=== PATIENT | male | born 1960 | race Hispanic/Latino ===

== ENCOUNTER 2021-01-24 11:48 | Emergency (ER) | payer OTHER ==
[~2021-01-24] VITALS: Ht 188 cm; Wt 127.0 kg
[2021-01-24 11:49] VITALS: BP 131/68
[2021-01-24 12:40] LABS: BASOPHILS % (AUTO) 1.5 % (0.0-5.0); EOSINOPHILS % (AUTO) 1.6 % (0.0-8.0); HEMATOCRIT 44.6 % (42-54); LYMPHOCYTES % (AUTO) 24.8 % (21.0-51.0); MEAN CORPUSCULAR HEMOGLOBIN 28.5 pg (27.0-33.0); MEAN CORPUSCULAR HGB CONC 32.1 g/dL (32.0-36.0); MEAN CORPUSCULAR VOLUME 88.8 fL (79-99); MONOCYTES % (AUTO) 10.1 % (3.0-13.0); NEUTROPHILS % (AUTO) 61.6 % (40.0-77.0); PLATELET COUNT (AUTO) 217 K/uL (130-400); RED BLOOD CELL COUNT(AUTO) 5.02 MIL/uL (4.50-6.20); WHITE BLOOD COUNT (AUTO) 8.2 K/uL (4.8-10.8)
[2021-01-24 12:50] LABS: CREATININE 0.9 mg/dL (0.5-1.5); POTASSIUM 4.4 mmol/L (3.5-5.1)
[2021-01-24 12:54] LABS: ALBUMIN 3.6 g/dL (3.5-5.0); BILIRUBIN,TOTAL 0.5 mg/dL (0.2-1.0); TOTAL PROTEIN, SERUM 7.4 g/dL (6.0-8.3)
[2021-01-24 13:03] LABS: APPEARANCE,URINE Clear (CLEAR); BILIRUBIN,URINE Negative (NEGATIVE); COLOR,URINE Dark Yellow (YELLOW); GLUCOSE, URINE (UA) Negative (NEGATIVE); KETONES,URINE Negative (NEGATIVE); LEUKOCYTE ESTERASE ,URINE Negative (NEGATIVE); NITRATE,URINE Negative (NEGATIVE); OCCULT BLOOD,URINE Small (NEGATIVE); PH,URINE 5.5 (5.0-8.0); PROTEIN,URINE Trace mg/dL (NEGATIVE)
[2021-01-24 13:45] LABS: WBC,URINE None Seen /HPF (0-1)
[2021-01-24] MEDS ORDERED: DICYCLOMINE 20MG (10MG/ML) AMP IM SCH (13:45)
[2021-01-24] MEDS ORDERED: LEVOFLOXACIN 500 MG TABLET PO SCH (13:45)
[2021-01-24] MEDS ORDERED: FAMOTIDINE 20MG VIAL IV ONE ×2 (13:45→14:58)
[2021-01-24 13:46] LABS: BACTERIA,URINE None Seen /HPF (None Seen); MUCUS,URINE Moderate LPF (None Seen); SQUAMOUS EPITHELIAL CELL,UR Few /HPF (0-2)
[2021-01-24] MEDS ORDERED: METRONIDAZOLE 500MG/100ML BAG 100 ML IVPB SCH (14:00)
[2021-01-24] MEDS ORDERED: LIDOCAINE HCL 2% VISCOUS 15 ML UDCUP ONE (14:14)
[2021-01-24] MEDS ORDERED: MAGNESIUM HYDROXIDE 30 ML/UDCUP ONE (14:14)
[2021-01-24] MEDS ORDERED: CIPR-278 PO (16:16)
[2021-01-24] MEDS ORDERED: METR500T PO (16:16)
[2021-01-24] MEDS ORDERED: DICY20TA2 PO (16:16)
[2021-01-24 16:36] VITALS: BP 124/76
== END 2021-01-24 16:37 | disposition home or self-care (01) ==
LOC: EDH 11:48
DX: K52.9 Noninfective gastroenteritis and colitis, unspecified (principal); Z90.49 Acquired absence of other specified parts of digestive tract
CPT/HCPCS: 36415; 71045; 74176; 80053; 81001; 82150; 82550; 83690 ×2; 84484 ×2; 85025; 87040 ×2; 93005 ×2; 96365; 96372; 96375; 99285; J0500; J3490 ×2

== ENCOUNTER 2021-08-08 08:09 | Emergency (ER) | payer OTHER ==
[~2021-08-08] VITALS: Ht 188 cm; Wt 124.7 kg
[~2021-08-08 08:09] MED LIST: CIPR-278 PO; DICY20TA2 PO; METR500T PO
[2021-08-08 08:34] LABS: BASOPHILS % (AUTO) 2.1 % (0.0-5.0); HEMATOCRIT 41.2 % (42-54); LYMPHOCYTES % (AUTO) 22.9 % (21.0-51.0); MEAN CORPUSCULAR HEMOGLOBIN 28.8 pg (27.0-33.0); MEAN CORPUSCULAR HGB CONC 32.8 g/dL (32.0-36.0); MONOCYTES % (AUTO) 9.6 % (3.0-13.0); NEUTROPHILS % (AUTO) 63.8 % (40.0-77.0); PLATELET COUNT (AUTO) 201 K/uL (130-400); RED BLOOD CELL COUNT(AUTO) 4.68 MIL/uL (4.50-6.20); RED CELL DISTRIBUTION WIDTH 13.1 % (11.0-15.5)
[2021-08-08 08:51] LABS: ALBUMIN 3.7 g/dL (3.5-5.0); BILIRUBIN,TOTAL 0.4 mg/dL (0.2-1.0); CREATININE 0.9 mg/dL (0.5-1.5); POTASSIUM 4.1 mmol/L (3.5-5.1)
[2021-08-08 09:02] LABS: B-TYPE NATRIURETIC PEPTIDE 28 pg/mL (0-100)
[2021-08-08] MEDS ORDERED: ASPIRIN 325MG TAB PO ONE (12:30)
[2021-08-08] MEDS ORDERED: NITROGLYCERIN 0.4 MG SL TAB SL PRN (12:30)
[2021-08-08] MEDS ORDERED: NAPR-1180 PO (13:09)
[2021-08-08 13:49] VITALS: BP 135/84
== END 2021-08-08 13:53 | disposition home or self-care (01) ==
LOC: EDH 08:09
DX: R07.89 Other chest pain (principal); Z20.822 Contact with and (suspected) exposure to COVID-19; E66.9 Obesity, unspecified; Z68.35 Body mass index [BMI] 35.0-35.9, adult; Z90.49 Acquired absence of other specified parts of digestive tract
CPT/HCPCS: 36415; 71045; 80053; 82550; 83880; 84484 ×2; 85025; 87635; 87804 ×2; 93005; 99285; C9803

== ENCOUNTER 2023-04-15 14:29 | Emergency (ER) | payer OTHER ==
[~2023-04-15] VITALS: Ht 190.5 cm; Wt 117.9 kg
[~2023-04-15 14:29] MED LIST changes: +NAPR-1180 PO
[2023-04-15] MEDS ORDERED: KETOROLAC 60 MG VIAL (30MG/ML) IM ONE (15:30)
[2023-04-15] MEDS ORDERED: DEXAMETHASONE SOD PHOSPHATE 4 MG/ML 1ML VIAL IM ONE (15:30)
[2023-04-15] MEDS ORDERED: MORPHINE 4 MG SYG IM ONE (16:30)
[2023-04-15] MEDS ORDERED: IBUP-2070 PO (17:06)
[2023-04-15] MEDS ORDERED: ACET-2079 PO (17:06)
[2023-04-15 17:13] VITALS: BP 136/78; PULSE 84; RESP 18; O2SAT 98
== END 2023-04-15 17:22 | disposition home or self-care (01) ==
LOC: EDH 14:29
DX: M25.561 Pain in right knee (principal); Z90.49 Acquired absence of other specified parts of digestive tract
CPT/HCPCS: 99285; 73700; 73562; 96372 ×3; J1100; J2270; J1885

== ENCOUNTER → 2023-05-01 | Outpatient (CLI) | payer OTHER ==
[~2023-05-01] MED LIST changes: +ACET-2079 PO; +IBUP-2070 PO; +ONDA-104 PO; +TRAZ-187 PO
== END | disposition home or self-care (01) ==
LOC: RAH 12:33
PROVIDERS: ATTEND Internal Medicine
DX: M17.11 Unilateral primary osteoarthritis, right knee (principal); M26.52 Limited mandibular range of motion; M25.561 Pain in right knee
CPT/HCPCS: 73721

== ENCOUNTER → 2023-07-06 | Outpatient (CLI) | payer OTHER ==
[~2023-07-06] MED LIST changes: -ACET-2079 PO; -CIPR-278 PO; -DICY20TA2 PO; -IBUP-2070 PO; -METR500T PO; -NAPR-1180 PO
== END | disposition home or self-care (01) ==
LOC: RAH 08:28
PROVIDERS: ATTEND Internal Medicine Gastroenterology
DX: K21.9 Gastro-esophageal reflux disease without esophagitis (principal); Q39.6 Congenital diverticulum of esophagus; R93.3 Abnormal findings on diagnostic imaging of other parts of digestive tract; R11.2 Nausea with vomiting, unspecified
CPT/HCPCS: 74240

== ENCOUNTER → 2023-08-08 | Outpatient (CLI) | payer OTHER | END | disposition home or self-care (01) | LOC: RAH 07:06 | PROVIDERS: ATTEND Internal Medicine Gastroenterology | DX: R93.3 Abnormal findings on diagnostic imaging of other parts of digestive tract (principal) | CPT/HCPCS: 78264; A9541 ==

== ENCOUNTER 2023-09-06 14:47 | Observation (INO) | payer OTHER ==
[~2023-09-06] VITALS: Ht 190.5 cm; Wt 111.1 kg
[2023-09-06 15:40] LABS: HEMATOCRIT 43.3 % (42-54); MEAN CORPUSCULAR HEMOGLOBIN 29.1 pg (27.0-33.0); PLATELET COUNT (AUTO) 259 K/uL (130-400); RED BLOOD CELL COUNT(AUTO) 4.92 MIL/uL (4.50-6.20); RED CELL DISTRIBUTION WIDTH 12.6 % (11.0-15.5); WHITE BLOOD COUNT (AUTO) 8.7 K/uL (4.8-10.8)
[2023-09-06 15:56] LABS: BASOPHILS # (AUTO) 0.14 K/uL (0.00-0.20); BASOPHILS % (AUTO) 1.6 % (0.0-5.0); EOSINOPHILS # (AUTO) 0.07 K/uL (0.00-0.70); EOSINOPHILS % (AUTO) 0.8 % (0.0-8.0); IMMATURE GRANULOCYTE ABSOLUTE 0.02 K/uL (0-1); LYMPHOCYTES # (AUTO) 2.5 K/uL (1.0-4.8); LYMPHOCYTES % (AUTO) 28.8 % (21.0-51.0); MONOCYTES # (AUTO) 0.8 K/uL (0.1-1.0); MONOCYTES % (AUTO) 8.6 % (3.0-13.0); NEUTROPHILS # (AUTO) 5.3 K/uL (1.8-7.7)
[2023-09-06 16:15] LABS: CREATININE 1.1 mg/dL (0.5-1.5); POTASSIUM 3.9 mmol/L (3.5-5.1)
[2023-09-06 16:23] LABS: ALBUMIN 4.1 g/dL (3.5-5.0); BILIRUBIN,TOTAL 0.7 mg/dL (0.2-1.0); TOTAL PROTEIN, SERUM 7.6 g/dL (6.0-8.3)
[2023-09-06 16:43] LABS: APPEARANCE,URINE CLEAR (CLEAR); BILIRUBIN,URINE NEGATIVE (NEGATIVE); COLOR,URINE COLORLESS (YELLOW); GLUCOSE, URINE (UA) NEGATIVE (NEGATIVE); KETONES,URINE NEGATIVE (NEGATIVE); LEUKOCYTE ESTERASE ,URINE NEGATIVE Leu/uL (NEGATIVE); NITRATE,URINE NEGATIVE (NEGATIVE); OCCULT BLOOD,URINE NEGATIVE (NEGATIVE); PROTEIN,URINE NEGATIVE (NEGATIVE); UROBILINOGEN,URINE 0.2 mg/dL (0.2-1.0)
[2023-09-06 16:46] LABS: ADD UA MICROSCOPIC NO
[2023-09-06] MEDS: KETOROLAC 30MG VIAL (30MG/ML) IVP ONE (17:51)
[2023-09-06] MEDS ORDERED: ONDANSETRON ODT 4MG TAB SL PRN (20:30)
[2023-09-06] MEDS ORDERED: ACETAMINOPHEN 325 MG TAB PO PRN (20:30)
[2023-09-06] MEDS: ATORVASTATIN 40 MG TABLET PO SCH (21:21)
[2023-09-07 07:33] LABS: BASOPHILS # (AUTO) 0.12 K/uL (0.00-0.20); BASOPHILS % (AUTO) 1.7 % (0.0-5.0); EOSINOPHILS # (AUTO) 0.11 K/uL (0.00-0.70); EOSINOPHILS % (AUTO) 1.6 % (0.0-8.0); HEMATOCRIT 39.6 % (42-54); IMMATURE GRANULOCYTE ABSOLUTE 0.02 K/uL (0-1); LYMPHOCYTES # (AUTO) 1.7 K/uL (1.0-4.8); LYMPHOCYTES % (AUTO) 24.6 % (21.0-51.0); MEAN CORPUSCULAR HEMOGLOBIN 29.3 pg (27.0-33.0); MEAN CORPUSCULAR HGB CONC 33.3 g/dL (32.0-36.0); MONOCYTES # (AUTO) 0.7 K/uL (0.1-1.0); NEUTROPHILS # (AUTO) 4.3 K/uL (1.8-7.7); NEUTROPHILS % (AUTO) 61.8 % (40.0-77.0); PLATELET COUNT (AUTO) 213 K/uL (130-400); RED CELL DISTRIBUTION WIDTH 12.6 % (11.0-15.5)
[2023-09-07] MEDS ORDERED: METO5 PO (07:37)
[2023-09-07] MEDS ORDERED: PANT40GR PO (07:37)
[2023-09-07] MEDS: PANTOPRAZOLE 40 MG TAB DR PO SCH (07:59)
[2023-09-07] MEDS: 0.9%NACL 1000ML 1,000 ML IV SCH (07:59)
[2023-09-07] MEDS: ASPIRIN 325MG TAB PO SCH (08:00)
[2023-09-07] MEDS ORDERED: MAG/ALUM/SIMETH 30 ML UDCUP PO PRN (08:00)
[2023-09-07] MEDS ORDERED: LACTULOSE 20 GM/30 ML UDCUP PO PRN (08:00)
[2023-09-07 08:07] LABS: CREATININE 1.1 mg/dL (0.5-1.5); POTASSIUM 4.3 mmol/L (3.5-5.1)
[2023-09-07] MEDS ORDERED: NON-FORMULARY MEDICATION 1 EACH (Pantoprazole Sodium 40 MG) PO SCH (09:00)
[2023-09-07] MEDS: METOCLOPRAMIDE 5 MG TABLET PO SCH (12:07)
[2023-09-07] MEDS ORDERED: ROSU5TAB12 PO (12:46)
[2023-09-07] MEDS ORDERED: TRAZ150T79 PO (12:46)
[2023-09-07 13:43] VITALS: BP 116/83; PULSE 62; RESP 18; O2SAT 98
[2023-09-07] MEDS ORDERED: TRAZODONE HCL 100 MG TABLET PO SCH (21:00)
== END 2023-09-07 14:09 | disposition home or self-care (01) ==
LOC: EDH 14:47 → EDHIP 19:30
PROVIDERS: ADMIT Internal Medicine; ATTEND Internal Medicine
DX: R07.89 Other chest pain (principal); K21.9 Gastro-esophageal reflux disease without esophagitis; K31.84 Gastroparesis; R10.12 Left upper quadrant pain; G47.33 Obstructive sleep apnea (adult) (pediatric); E78.2 Mixed hyperlipidemia; E88.810 Metabolic syndrome; E66.9 Obesity, unspecified; M17.0 Bilateral primary osteoarthritis of knee; G89.29 Other chronic pain; J30.9 Allergic rhinitis, unspecified; R20.0 Anesthesia of skin; M79.622 Pain in left upper arm; Z68.30 Body mass index [BMI] 30.0-30.9, adult; Z90.49 Acquired absence of other specified parts of digestive tract; Z79.899 Other long term (current) drug therapy
CPT/HCPCS: 96374; 99285; 84484 ×2; 80053; 85025 ×2; 81003; 36415 ×2; 71045; 70450; 93005; 96361 ×2; 80048; 93880; J1885; G0378 ×6; J7030

== ENCOUNTER → 2024-09-09 | Outpatient (CLI) | payer OTHER ==
[~2024-09-09] MED LIST changes: +METO5 PO; +PANT40GR PO; +ROSU5TAB51 PO; +TRAZ150T79 PO
--- NOTE | 2024-09-09 12:48 | HMCIMG ---
CALCANEUS 2+VWS LT REASON: PAIN ON LEFT HEEL, PAIN IN LEFT FOOT. COMPARISON: None TECHNIQUE: 2 images of left calcaneus were obtained. FINDINGS: There is a small calcaneal spur displaced fracture is seen. IMPRESSION: Findings as described above.
== END | disposition home or self-care (01) ==
LOC: RAH 10:18
PROVIDERS: ATTEND Internal Medicine
DX: S92.002A Unspecified fracture of left calcaneus, initial encounter for closed fracture (principal); M77.32 Calcaneal spur, left foot; M79.672 Pain in left foot; X58.XXXA Exposure to other specified factors, initial encounter; Y93.89 Activity, other specified; Y92.89 Other specified places as the place of occurrence of the external cause; Y99.8 Other external cause status
CPT/HCPCS: 73650

== ENCOUNTER 2024-11-23 18:44 | Emergency (ER) | payer OTHER ==
[~2024-11-23] VITALS: Ht 188 cm; Wt 122.5 kg
--- NOTE | 2024-11-23 18:59 | ERN ---
ED Note History of Present Illness Stated Complaint: LEFT HEEL PAIN Chief Complaint: FOOT INJURY/PAIN Time Seen by MD: 18:47 Dictation: PATIENT IS A 64-YEAR-OLD MALE HERE WITH COMPLAINTS OF LEFT HEEL PAIN WORSE IN THE 1ST STEPS IN THE MORNING FOR THE LAST SEVERAL MONTHS. HE STATES HE HAD BEEN SEEN IN HIS PRIMARY CARE DOCTOR FOR SEVERAL MONTHS WHO GAVE HIM A SHOT FOR PAIN, SENT HIM FOR AN X-RAY, THEN SENT HIM FOR AN MRI AND HE WAS TOLD HE HAD A HEEL SPUR,. SAID HE HAS THEN WAS IN A WALKING BOOT AND THEN A SCOOTER WAS NEVER REFERRED TO AN ORTHOPEDIC SURGEON. HE SAID HE HAS A LOCAL [employer] AND HAS TO WALK QUITE A BIT AND NEEDS RELIEF. HE HAS ANY HISTORY OF GOUT NO FEVER NO CHILLS NO HEEL ERYTHEMA. Allergies: Coded Allergies: No Known Drug Allergies (Unverified Allergy, Unknown, 05/16/23) Home Meds Active Scripts Rosuvastatin Calcium (Rosuvastatin Calcium) 5 Mg Tablet, 5 MG PO HS, #90 TAB 1 Refill Prov:NORA BELL MD 09/07/23 Trazodone HCl (Trazodone HCl) 150 Mg Tablet, 150 MG PO HS, #90 TAB 1 Refill Prov:NORA BELL MD 09/07/23 Pantoprazole Sodium (Pantoprazole Sodium) 40 Mg Granpkt.dr, 40 MG PO DAILY, #30 10 Prov:NORA BELL MD 09/07/23 Metoclopramide HCl (Reglan) 5 Mg Tab, 5 MG PO TIDAC, #30 TAB 1 Refill Prov:NORA BELL MD 09/07/23 Ondansetron HCl (Ondansetron HCl) 4 Mg Tablet, 4 MG PO TID, #12 TAB 1 Refill Prov:NORA BELL MD 05/17/23 Trazodone HCl (Trazodone HCl) 100 Mg Tablet, 100 MG PO HS, #90 TAB 1 Refill Prov:NORA BELL MD 05/17/23 Past Medical History Past Medical History: Other Additional Past Medical Hx: GRANULOMA Surgical History: Appendectomy, Tonsillectomy, Cholecystectomy Surgical History Other: LT INGUINAL HERNIA REPAIR Family History: Negative Social History: Negative RN Note Reviewed/Agreed w/PFSH: Yes Review of System Dictation CONSTITUTIONAL: NEGATIVE EXCEPT FOR HPI HEAD/FACE: NEGATIVE EXCEPT FOR HPI EENT: NEGATIVE EXCEPT FOR HPI RESPIRATORY: NEGATIVE EXCEPT FOR HPI GASTROINTESTINAL/ABDOMINAL: NEGATIVE EXCEPT FOR HPI GENITOURINARY: NEGATIVE EXCEPT FOR HPI MUSCULOSKELETAL: NEGATIVE EXCEPT FOR HPI CHRONIC LEFT HEEL PAIN SEVERAL MONTHS. INTEGUMENTARY: NEGATIVE EXCEPT FOR HPI NEUROLOGICAL/PSYCH: NEGATIVE EXCEPT FOR HPI HEMATOLOGIC/LYMPHATIC: NEGATIVE EXCEPT FOR HPI ALL SYSTEMS NEGATIVE, EXCEPT NOTED ABOVE. 13 POINT REVIEW OF SYSTEMS ASSESSED AND ALL NEGATIVE EXCEPT FOR ABOVE. Initial Vital Sign VS Vital Signs Date Time Temp Pulse Resp B/P (MAP) Pulse Ox O2 Delivery O2 Flow Rate FiO2 11/23/24 18:48 97.9 98 18 126/75 97 Room Air 0 11/23/24 19:04 21 Physical Exam Dictation VITAL SIGNS REVIEWED GENERAL APPEARANCE: ALERT, ORIENTED X 3, MODERATE ACUTE DISTRESS, WELL DEVELOPED, NOURISHED. HEAD AND FACE: NON-TRAUMATIC. EYES: PERRL, PINK CONJUNCTIVAS, EYELID NO TRAUMA, ANTERIOR CHAMBER WITH ARCUS SENILIS. EARS: PINNAS INTACT AND NO SIGNS OF TRAUMA OR ERYTHEMA EAR CANALS CLEAR AND NO DISCHARGE TM NO ERYTHEMA NOSE: NO DISCHARGE, NO BLEEDING. OROPHARYNX: MOUTH NORMAL, TONGUE PINK, PHARYNX CLEAR,NO ERYTHEMA, TONSILS NO EXUDATES, NO ABSCESSES NOTED, MUCOUS MEMBRANE MOIST NECK: SUPPLE, NON-TENDER, NO THYROMEGALY, NO MASSES, NO JVD, NO BRUITS BREAST:DEFERRED CHEST:NO TENDERNESS, NO CREPITUS, NO PARADOXICAL MOVEMENT, NO RETRACTIONS LUNGS:CLEAR, WELL-VENTILATED, SYMMETRIC, NO RALES, NO WHEEZING, NO RHONCHI, NO STRIDOR, GOOD BREATH SOUNDS BILATERALLY HEART: REGULAR RATE, REGULAR RHYTHM, NO MURMUR, NO GALLOPS VASCULAR: NO PERIPHERAL EDEMA, ABDOMEN: SOFT, POSITIVE BOWEL SOUNDS, NONDISTENDED, NO GUARDING, NONTENDER, NO REBOUND, NO MASSES NO HEPATOMEGALY, NO SPLENOMEGALY, NO AGGARWAL'S SIGN, NO HERNIAS. RECTAL: DEFERRED GENITAL: DEFERRED NEUROLOGICAL: NORMAL SPEECH, MOTOR FUNCTION INTACT, SENSORY FUNCTION INTACT MUSCULOSKELETAL: NECK NONTENDER, FULL RANGE OF MOTION, BACK NONTENDER, FULL RANGE OF MOTION, EXTREMITIES: MODERATE TENDERNESS WITH PALPATION TO LEFT HEEL. NO ERYTHEMA NO SWELLING SKIN: COLOR PINK, DRY, NO TURGOR, NO RASH, NO LACERATIONS, NO ABRASIONS, NO CONTUSIONS. LYMPHATIC: DEFERRED Results (Laboratory/Radiology) Laboratory/Radiology 1925/LEFT FOOT X-RAY NEGATIVE Labs Reviewed?: Yes ED Course ED Course Orders Procedure Category Date Status Time Dexamethasone 4mg/Ml PHA 11/23/24 Complete 1ml Vial (Dexametha 19:00 Lidocaine Hcl 1% 20ml PHA 11/23/24 Complete Vial (Lidocaine Hc 19:00 Foot Comp 3+Vws Lt RAD 11/23/24 Taken 18:54 Bupivacaine/Pf 0.5% PHA 11/23/24 Complete 30ml (Bupiv/Pf 0.5% 19:00 Bupivacaine/Epi/Pf PHA 11/23/24 In Process 0.5% 30ml (Bupivacain 19:30 Bupivacaine/Pf 0.5% PHA 11/23/24 Complete 10ml Vial (Bupivacai 19:30 Current Medications Medications (Trade) Dose Ordered Sig/Ashish Route PRN Reason Start Time Stop Time Status Last Admin Dose Admin Bupivacaine HCl (BUPIvacaine/PF 0.5% 10ML VIAL) 5 mg ONCE ONCE IJ 11/23/24 19:30 11/23/24 19:31 DC Bupivacaine HCl (Bupiv/Pf 0.5% 30ml) 5 mg STK-MED ONCE .ROUTE 11/23/24 19:00 11/23/24 19:01 DC 11/23/24 19:15 Bupivacaine HCl/ Epinephrine Bitart (BUPIvacaine/EPI/ PF 0.5% 30ML) 30 ml ONCE IJ 11/23/24 19:30 12/23/24 19:29 Dexamethasone Sodium Phosphate (dexaMETHasone 4MG/ML 1ML VIAL) 8 mg ONCE ONCE IM 11/23/24 19:00 11/23/24 19:01 DC 11/23/24 19:16 Lidocaine HCl (Lidocaine HCl 1% 20ml Vial) 5 ml ONCE INJ 11/23/24 19:00 11/23/24 19:02 DC Vital Signs Date Time Temp Pulse Resp B/P (MAP) Pulse Ox O2 Delivery O2 Flow Rate FiO2 11/23/24 19:04 97.9 98 18 126/75 97 Room Air* 0 21 11/23/24 18:48 97.9 98 18 126/75 97 Room Air 0 1935/LEFT HEEL X-RAY NEGATIVE PATIENT GIVEN TRIGGER POINT INJECTION FOR PLANTAR FASCIITIS PAIN REDUCED FROM 10/10 DOWN TO 1/10 AND PATIENT IS FULL WEIGHT-BEARING LEFT FOOT. TOLERATED WELL Medical Decision Making [facility] MEDICAL DISCHARGE MAKING BASED ON TRIGGER POINT INJECTION FOR EMPIRIC TREATMENT OF PLANTAR FASCIITIS LEFT FOOT X-RAY NEGATIVE PATIENT DISCHARGED HOME WITH IBUPROFEN DIET AND ACTIVITY TOLERATED Procedure Procedure Dictation: 1924/PROCEDURE EXPLAINED TO PATIENT HE AGREED TO PROCEED POINT OF MAXIMAL PAIN WAS IDENTIFIED ON LEFT HEEL MARKED APPROPRIATELY AREA PREPPED WITH BETADINE STERILELY TRIGGER POINT INJECTION DONE IN A STELLATE MANNER WITH 6 MG DECADRON/2 ML MARCAINE PATIENT STATES PAIN IS NOW 1/10 AFTER TREATMENT. NO BLEEDING AND TOLERATED WELL DX & DISP Disposition: Discharge Departure Impression: Primary Impression: Plantar fasciitis of left foot Condition: Stable Scripts Ibuprofen (Ibuprofen 800 mg Tab) 800 Mg Tab 800 MG PO Q8H PRN for fever or pain, #30 TAB 0 Refills Prov: NORMA MAE LEVEE SUPERINTENDENT 11/23/24 Additional Instructions: FOLLOW-UP WITH PRIMARY CARE PROVIDER IN 1 TO 2 DAYS. TAKE MEDICATIONS DIRECTED HERE IN THE EMERGENCY ROOM. OKAY TO CONTINUE HOME MEDICATIONS UNLESS OTHERWISE DISCUSSED DURING YOUR VISIT IN THE EMERGENCY ROOM TODAY. RETURN TO YOUR NEAREST EMERGENCY ROOM IF SYMPTOMS WORSEN OR IF THERE IS NO IMPROVEMENT. CALL 911 IF YOU NEED IMMEDIATE ASSISTANCE. TAKE TYLENOL OR MOTRIN [id number] NEEDED AND IF NO CONTRAINDICATIONS ARE PRESENT. INCREASE ORAL HYDRATION. A WOUND CULTURE OR URINE CULTURE WAS ORDERED HERE IN THE EMERGENCY ROOM DEPARTMENT PLEASE FOLLOW-UP WITH PRIMARY CARE PROVIDER AND ADVISE THEM TO GET REPEAT PORTS FROM OUR FACILITY. IF YOU HAD ANY ALFA WRAP/SPLINTS THAT WERE APPLIED HERE, PLEASE DO NOT REMOVE THEM UNTIL YOU SEE YOUR PRIMARY CARE OR SPECIALTY. TAKE IBUPROFEN EVERY 8 HOURS WITH FOOD FOR THE NEXT TWO DAYS. FOLLOW UP WITH YOUR PRIMARY CARE DOCTOR NEEDED OR YOUR ORTHOPEDIC SURGEON Referrals: NORA BELL MD (PCP) I have reviewed the case, and I agree with, Diagnosis and Plan NORMA MAE NP Nov 23, 2024 18:59
[2024-11-23] MEDS ORDERED: LIDOCAINE HCL 1% 20 ML VIAL INJ SCH (19:00)
[2024-11-23 19:04] VITALS: BP 126/75; PULSE 98; RESP 18; TEMP 97.9; O2SAT 97
[2024-11-23] MEDS: BUPIvacaine/PF 0.5% 30ML VIAL ONE (19:15)
[2024-11-23] MEDS: BUPIvacaine/EPI/PF 0.5% 30ML VIAL IJ SCH (19:16)
[2024-11-23] MEDS: dexaMETHasone SOD PHOSPHATE 4 MG/ML 1ML VIAL IM ONE (19:16)
[2024-11-23] MEDS: BUPIvacaine/PF 0.5% 10ML VIAL IJ ONE (19:16)
[2024-11-23] MEDS ORDERED: IBUP-2077 PO (19:36)
[2024-11-23] MEDS: ketOROlac 60 MG VIAL (30MG/ML) IM ONE (19:48)
--- NOTE | 2024-11-23 19:49 | HMCIMG ---
FOOT COMP 3+VWS LT INDICATION: LEFT HEEL PAIN FOR ???SEVERAL MONTHS???. TECHNIQUE: FOOT COMP 3+VWS LT. FINDINGS AND IMPRESSION: No displaced fracture or dislocation is seen. Correlate clinically. There is no joint effusion or soft tissue swelling. Very small plantar calcaneal enthesophyte is seen.
== END 2024-11-23 19:51 | disposition home or self-care (01) ==
LOC: EDH 18:44
DX: M72.2 Plantar fascial fibromatosis (principal); M79.18 Myalgia, other site; Z79.899 Other long term (current) drug therapy; Z90.49 Acquired absence of other specified parts of digestive tract; Z90.89 Acquired absence of other organs
CPT/HCPCS: 99284; 20552; 73630; 96372; J1100; J1885; J0665 ×2; 20550

== ENCOUNTER 2025-07-10 14:08 | Observation (INO) | payer OTHER ==
[~2025-07-10] VITALS: Ht 188 cm; Wt 111.1 kg
--- NOTE | 2025-07-10 14:56 | ERN ---
General Chief Complaint: Rectal Bleed Stated Complaint: RECTAL BLEED Time Seen by MD: 14:10 Source: patient History of Present Illness Initial Comments PATIENT IS A 64-YEAR-OLD GENTLEMAN COMING IN COMPLAINING OF RECTAL DISCOMFORT. PATIENT STATES THAT EARLIER TODAY WHILE DEFECATING YOU SAW SOME BLOOD IN THE TOILET PAPER DECIDED TO COME IN FOR FURTHER EVALUATION. HE DOES STATE THAT HE HAS A HISTORY OF HEMORRHOIDS. Allergies: Coded Allergies: No Known Drug Allergies (Unverified Allergy, Unknown, 05/16/23) Home Meds Active Scripts Ibuprofen (Ibuprofen 800 mg Tab) 800 Mg Tab, 800 MG PO Q8H PRN for fever or pain, #30 TAB 0 Refills Prov:JOSELINEPIANORMA [facility] [employer] EDUCATION COORDINATOR 11/23/24 Rosuvastatin Calcium (Rosuvastatin Calcium) 5 Mg Tablet, 5 MG PO HS, #90 TAB 1 Refill Prov:NORA BELL MD 09/07/23 Trazodone HCl (Trazodone HCl) 150 Mg Tablet, 150 MG PO HS, #90 TAB 1 Refill Prov:NORA BELL MD 09/07/23 Pantoprazole Sodium (Pantoprazole Sodium) 40 Mg Granpkt.dr, 40 MG PO DAILY, #30 10 Prov:NORA BELL MD 09/07/23 Metoclopramide HCl (Reglan) 5 Mg Tab, 5 MG PO TIDAC, #30 TAB 1 Refill Prov:NORA BELL MD 09/07/23 Ondansetron HCl (Ondansetron HCl) 4 Mg Tablet, 4 MG PO TID, #12 TAB 1 Refill Prov:NORA BELL MD 05/17/23 Trazodone HCl (Trazodone HCl) 100 Mg Tablet, 100 MG PO HS, #90 TAB 1 Refill Prov:NORA BELL MD 05/17/23 Past Medical History Past Medical History: Other Medical History Other: [employer]ERS GRANULOMA Past Surgical History: Appendectomy, Tonsillectomy, Cholecystectomy, Other Surgical History Other: RIGHT INGUINAL HERNIA Family History Family History: Negative Social History Social History: Negative ROS Dictation CONSTITUTIONAL: NO CHILLS, NO FEVER, NO WEAKNESS, NO DIAPHORESIS, NO MALAISE. HEAD/FACE: NO SIGNS OF TRAUMA. EENT: NO EYE PAIN, NO BLURRED VISION, NO TEARING, NO DOUBLE VISION, NO EAR PAIN, NO EAR DISCHARGE, NO NOSE PAIN, NO NASAL CONGESTION, NO THROAT PAIN, NO THROAT SWELLING, NO MOUTH PAIN. RESPIRATORY: NO COUGH, NO ORTHOPNEA, NO SOB, NO STRIDOR, NO WHEEZING. CARDIOVASCULAR: NO CHEST PAIN, NO EDEMA, NO PALPITATIONS, NO SYNCOPE. GASTROINTESTINAL/ABDOMINAL: NO ABDOMINAL PAIN, NO CONSTIPATION, NO DIARRHEA, NO NAUSEA, NO VOMITING. GENITOURINARY: NO ABNORMAL DISCHARGE, NO DYSURIA, NO FREQUENT URINATION, NO HEMATURIA. NO COMPLAINTS OF PAIN IN THE GENITALS. MUSCULOSKELETAL: NO BACK PAIN, NO GOUT, NO JOINT PAIN, NO JOINT SWELLING, NO MUSCLE PAIN, NO MUSCLE STIFFNESS, NO NECK PAIN. INTEGUMENTARY: NO CHANGE IN COLOR, NO CHANGE IN HAIR/NAILS, NO DRYNESS, NO LESION, NO LUMPS, NO RASH. NEUROLOGICAL/PSYCH: NO ANXIETY, NOT DEPRESSED, NO EMOTIONAL PROBLEM, NO HEADACHE, NO NUMBNESS, NO PRE-EXISTING DEFICIT, NO HISTORY OF SEIZURES, NO TREMORS, NO WEAKNESS. HEMATOLOGIC/LYMPHATIC: NOT ANEMIC, NO HISTORY OF BLOOD CLOTS, NO APPARENT BLEEDING, NO BRUISING, GLANDS NOT SWOLLEN. ALL SYSTEMS NEGATIVE, EXCEPT NOTED. Physical Exam Physical Exam Dictation VITAL SIGNS: REVIEWED. GENERAL APPEARANCE: ALERT, ORIENTED X3, NO ACUTE DISTRESS, OBESE. HEAD AND FACE: NON-TRAUMATIC. EYES: PERRL, PINK CONJUNCTIVAS, EYELID NO TRAUMA, ANTERIOR CHAMBER CLEAR. EARS: PINNAS INTACT AND NO SIGNS OF TRAUMA OR ERYTHEMA. EAR CANALS CLEAR AND NO DISCHARGE. TMS NO ERYTHEMA. NOSE: NO DISCHARGE, NO BLEEDING. OROPHARYNX: MOUTH NORMAL, TEETH NO CARIES, TONGUE PINK. PHARYNX CLEAR, NO ERYTHEMA. TONSILS NO EXUDATES, NO ABSCESSES NOTED. MUCOUS MEMBRANE MOIST. NECK: SUPPLE, NON-TENDER, NO THYROMEGALY, NO MASSES, NO JVD, NO BRUITS. BREAST: DEFERRED. CHEST: NO TENDERNESS, NO CREPITUS, NO PARADOXICAL MOVEMENT, NO RETRACTIONS. LUNGS: CLEAR, WELL-VENTILATED, SYMMETRIC, NO RALES, NO WHEEZING, NO RHONCHI, NO STRIDOR, GOOD BREATH SOUNDS BILATERALLY. HEART: REGULAR RATE, REGULAR RHYTHM, NO MURMUR, NO GALLOPS. VASCULAR: NO PERIPHERAL EDEMA. ABDOMEN: SOFT, POSITIVE BOWEL SOUNDS, NONDISTENDED, NO GUARDING, NONTENDER, NO REBOUND, NO MASSES NO HEPATOMEGALY, NO SPLENOMEGALY, NO AGGARWAL'S SIGN, NO HERNIAS. RECTAL: DEFERRED. GENITAL: DEFERRED. NEUROLOGICAL: NORMAL SPEECH, GROSS MOTOR FUNCTION INTACT, GROSS SENSORY FUNCTION INTACT. MUSCULOSKELETAL: NECK NONTENDER, FULL RANGE OF MOTION, BACK NONTENDER, FULL RANGE OF MOTION. EXTREMITIES: NONTENDER, FULL RANGE OF MOTION. SKIN: COLOR PINK, DRY, NO TURGOR, NO RASH, NO LACERATIONS, NO ABRASIONS, NO CONTUSIONS. LYMPHATICS: DEFERRED. Results Laboratory and Microbiology Lab and Micro Result Laboratory Tests Test 07/10/25 16:03 White Blood Count 8.4 K/uL (4.8-10.8) Red Blood Count 4.60 MIL/uL (4.50-6.20) Hemoglobin 13.4 g/dL (14.0-18.0) L Hematocrit 41.6 % (42-54) L Mean Corpuscular Volume 90.4 fL (79-99) Mean Corpuscular Hemoglobin 29.1 pg (27.0-33.0) Mean Corpuscular Hemoglobin Concent 32.2 g/dL (32.0-36.0) Red Cell Distribution Width 13.0 % (11.0-15.5) Platelet Count 210 K/uL (130-400) Mean Platelet Volume 10.4 fL (7.5-10.5) Immature Granulocyte % (Auto) 0.4 % (0-1) Neutrophils (%) (Auto) 56.1 % (40.0-77.0) Lymphocytes (%) (Auto) 30.0 % (21.0-51.0) Monocytes (%) (Auto) 10.6 % (3.0-13.0) Eosinophils (%) (Auto) 1.4 % (0.0-8.0) Basophils (%) (Auto) 1.5 % (0.0-5.0) Neutrophils # (Auto) 4.7 K/uL (1.8-7.7) Lymphocytes # (Auto) 2.5 K/uL (1.0-4.8) Monocytes # (Auto) 0.9 K/uL (0.1-1.0) Eosinophils # (Auto) 0.12 K/uL (0.00-0.70) Basophils # (Auto) 0.13 K/uL (0.00-0.20) Absolute Immature Granulocyte (auto 0.03 K/uL (0-1) Nucleated Red Blood Cells 0.0 % (0.0-0.19) Sodium Level 142 mmol/L (136-145) Potassium Level 4.2 mmol/L (3.5-5.1) Chloride Level 106 mmol/L (101-111) Carbon Dioxide Level 30 mmol/L (21-32) Blood Urea Nitrogen 17 mg/dL (7-18) Creatinine 1.1 mg/dL (0.5-1.3) Glomerular Filtration Rate Calc 76 mL/min (>90) Random Glucose 96 mg/dL (70-105) Total Calcium 8.5 mg/dL (8.5-10.1) Labs Reviewed?: Yes EKG/XRAY/US/CT/MRI CT Scan Comment [place] [id number] [place] [address] IMAGING REPORT Signed PATIENT: SALUD DELACRUZ MR#: [id number] : 1960 SEX: M AGE: 64 LOCATION: [facility] ORDER 1540 STATUS: [facility] REPORT#: [id number] SERVICE 1539 REASON: ABD PAIN ORDERING PHYSICIAN: JENNIFER EDEN MD PROCEDURE: ABD PEL WO - CT ABDOMEN/PELVIS W/O CONTRAST EXAM: CT Abdomen and Pelvis Without IV contrast CLINICAL HISTORY: ABD PAIN TECHNIQUE: Axial computed tomography images of the abdomen and pelvis without intravenous contrast. CONTRAST: No IV contrast. COMPARISON: None provided. FINDINGS: LUNG BASES: The lung bases appear clear. No pleural effusions are seen. LIVER: Unremarkable. GALLBLADDER AND BILE DUCTS: Cholecystectomy. PANCREAS: Unremarkable. SPLEEN: Unremarkable. ADRENAL GLANDS: Unremarkable. KIDNEYS, URETERS, AND BLADDER: Right renal cyst. STOMACH AND BOWEL: No bowel obstruction. Colonic diverticulosis. APPENDIX: No evidence of acute appendicitis on CT examination. PERITONEUM: No free fluid. No free air. LYMPH NODES: No lymphadenopathy is evident. REPRODUCTIVE: Unremarkable as visualized. VASCULATURE: No evidence of abdominal aortic aneurysm. BONES: Mild degenerative changes of the spine. IMPRESSION: 1. No acute intraabdominal or pelvic pathology. 2. Right renal cyst. 3. Colonic diverticulosis. 4. Status post cholecystectomy. 5. Mild degenerative changes of the spine. /[place] DICTATED BY: DEDE SIMPSON MD DATE: 07/10/251732 ELECTRONICALLY SIGNED BY: DEDE SIMPSON MD DATE: 07/10/251732 [facility] MDM: DIFFERENTIAL DIAGNOSIS: GI BLEED, DIVERTICULOSIS, RATIONALE: TESTS CONSIDERED AND ORDERED SECONDARY TO SHARED DECISION MAKING INCLUDE: PREVIOUS OUTSIDE RECORDS REVIEWED: OLD ER VISITS. RISK OF COMPLICATION AND/OR MORBIDITY OR MORTALITY OF PATIENT MANAGEMENT: NONE MEDICATIONS-PER MEDICATION RECONCILIATION NEED FOR HOSPITALIZATION: PATIENT DOES MEET CRITERIA FOR HOSPITALIZATION. NEED FOR EMERGENCY MAJOR/MINOR SURGERY: NO THERE ARE NO SOCIAL CONCERNS WITH THIS PATIENT. PRESCRIPTION DRUG MANAGEMENT PRESCRIPTIONS WILL INCLUDE SYMPTOMATIC CARE PATIENT'S PRIOR EXTERNAL MEDICAL RECORDS FROM OTHER ER VISITS WERE REVIEWED BY ME INDICATED. PRIOR TESTING AND RESULTS FROM PREVIOUS VISITS WERE REVIEWED. PRIOR TESTS WERE TAKEN INTO ACCOUNT WITH MEDICAL DECISION MAKING AND RESOURCE UTILIZATION, INDEPENDENT HISTORIAN/HISTORIANS WERE USED TO OBTAIN COMPLETE MEDICAL HISTORY. I INDEPENDENTLY INTERPRETED THE TEST THAT WERE PERFORMED, RESULTS WERE REVIEWED BY ME AND CONSIDERED FINDINGS ON RADIOLOGY IF ORDERED. MEDICAL MANAGEMENT AND EXAMINATION INTERPRETATION DISCUSSIONS WERE HAD BY ME WITH OTHER QUALIFIED HEALTHCARE PROFESSIONALS INDICATED FOR THE PATIENT'S CARE. PATIENT WILL BE ADMITTED UNDER THE CARE OF ED Course Orders Procedure Category Date Status Time Cbc With Differential LAB 07/10/25 Complete 15:39 Occult Blood Stool LAB 07/10/25 Logged Single Only 15:39 Ct Abdomen/Pelvis W/O CT 07/10/25 Resulted Contrast 15:39 Basic Metabolic Panel LAB 07/10/25 Complete 15:39 Admit Orders ADM 07/10/25 Transmitted 17:51 Hemoglobin And LAB 07/11/25 Verified Hematocrit 00:00 Hemoglobin And LAB 07/11/25 Verified Hematocrit 08:00 Vital Signs Date Time Temp Pulse Resp B/P (MAP) Pulse Ox O2 Delivery O2 Flow Rate FiO2 07/10/25 14:25 99.0 78 16 139/87 97 Room Air 0 DX & DISP Disposition: Inpatient Decision to Admit Time: 17:59 Departure Impression: Primary Impression: GI bleed Condition: Stable Referrals: NORA BELL MD (PCP) JENNIFER EDEN MD Jul 10, 2025 14:56
[2025-07-10 16:11] LABS: IMMATURE GRANULOCYTE ABSOLUTE 0.03 K/uL (0-1); NUCLEATED RED BLOOD CELLS 0.0 % (0.0-0.19); PLATELET COUNT (AUTO) 210 K/uL (130-400); RED BLOOD CELL COUNT(AUTO) 4.60 MIL/uL (4.50-6.20); RED CELL DISTRIBUTION WIDTH 13.0 % (11.0-15.5); WHITE BLOOD COUNT (AUTO) 8.4 K/uL (4.8-10.8)
[2025-07-10 16:22] LABS: CREATININE 1.1 mg/dL (0.5-1.3); GLOMERULAR FILTR. RATE CALC 76.0 mL/min (>90); GLUCOSE,RANDOM 96.0 mg/dL (70-105); SODIUM SERUM 142.0 mmol/L (136-145); UREA NITROGEN, BLOOD 17.0 mg/dL (7-18)
--- NOTE | 2025-07-10 16:34 | HMCIMG ---
EXAM: CT Abdomen and Pelvis Without IV contrast CLINICAL HISTORY: ABD PAIN TECHNIQUE: Axial computed tomography images of the abdomen and pelvis without intravenous contrast. CONTRAST: No IV contrast. COMPARISON: None provided. FINDINGS: LUNG BASES: The lung bases appear clear. No pleural effusions are seen. LIVER: Unremarkable. GALLBLADDER AND BILE DUCTS: Cholecystectomy. PANCREAS: Unremarkable. SPLEEN: Unremarkable. ADRENAL GLANDS: Unremarkable. KIDNEYS, URETERS, AND BLADDER: Right renal cyst. STOMACH AND BOWEL: No bowel obstruction. Colonic diverticulosis. APPENDIX: No evidence of acute appendicitis on CT examination. PERITONEUM: No free fluid. No free air. LYMPH NODES: No lymphadenopathy is evident. REPRODUCTIVE: Unremarkable as visualized. VASCULATURE: No evidence of abdominal aortic aneurysm. BONES: Mild degenerative changes of the spine. IMPRESSION: 1. No acute intraabdominal or pelvic pathology. 2. Right renal cyst. 3. Colonic diverticulosis. 4. Status post cholecystectomy. 5. Mild degenerative changes of the spine. /[place]
--- NOTE | 2025-07-10 18:28 | NUR ---
PATIENT NOW IN ROOM
[2025-07-10 20:00] VITALS: BP 136/85; PULSE 70; RESP 16; TEMP 97.8
[2025-07-10] MEDS: FAMOTIDINE 20MG VIAL IV SCH (20:17)
--- NOTE | 2025-07-10 21:46 | NUR ---
Paged Dr. Addison, regarding left abdomen pain radiating to back 02/05, pending call back.
--- NOTE | 2025-07-10 22:15 | HP ---
HISTORY AND PHYSICAL Date of Visit: Jul 10, 2025 Time of Visit: 22:15 ADMISSION DATE: Jul 10, 2025 at 17:51 CC: BLOOD IN STOOL HPI: THIS IS A 64 YR OLD MAN WITH HISTORY OF DJD METABOLIC SYNDROME HYPERLIPIDEMIA WHO PRESENTED WITH C/P RECTAL DISCOMFORT EARLIER TODAY WHEN HE WAS TRYING TO HAVE A BOWEL MOVEMENT. HE THEN SAW SOME BLOOD IN HIS STOOL AND WAS VERY BRIGHT RED IN COLOR AND THEN HAD ANOTHER EPISODE OF MORE BRIGHT RED BLOOD PER RECTUM AND APPEARED TO BE ALOT MORE THAN HIS PREVIOUS EPISODE SO HE DECIDED TO GO TO THE ER FOR EVALUATION. HE STATES HE DOES HAVE A HISTORY OF HEMORRHOIDS. HE IS UP TO DATE WITH HIS COLONOSCOPY DONE 05/2023 WITH HISTORY OF POLYPS AND IS DUE 2025, ALSO NOTED TO HAVE DIVERTICULOSIS AND INTERNAL HEMORRHOIDS IN HIS STUDY. PAST MEDICAL HISTORY: GERD WITH HISTORY OF GASTRITIS HYPERLIPIDEMIA DIVERTICULOSIS CHRONIC CONSTIPATION HEMORRHOIDS ALIX DJD GENERALIZED CHRONIC LLQ PAIN - EXTENSIVE GI WORK UP IN PAST AND FOLLOWS WITH GI SOCIAL HISTORY: NO CURRENT ALCOHOL TOBACCO OR DRUG ABUSE FAMILY HISTORY: NO FAMILY HISTORY OF ANY GI CANCERS ^ Patient History: Patient reports no known family medical history. Allergies: Coded Allergies: No Known Drug Allergies (Unverified Allergy, Unknown, 05/16/23) Scheduled Pantoprazole Sodium (Pantoprazole Sodium), 40 MG PO DAILY Discontinued Medications Trazodone HCl (Trazodone HCl), 100 MG PO HS Trazodone HCl (Trazodone HCl), 150 MG PO HS Review of Systems Normal Constitutional:, Normal Eyes:, Normal Ear/Nose/Mouth/Throat, Normal Cardiovascular:, Normal Respiratory:, Normal Genitourinary:, Normal Integumentary:, Normal Musculoskeletal:, Normal Neurological:, Normal Psychological:, Normal Endocrine:, Normal Hematologic/Lymphatic:, Normal Allergic/Immunologic:; Abnormal Gastrointestinal: (ABDOMINAL PAIN) Physical Exam Vital Signs Vital Signs Date Time Temp Pulse Resp B/P (MAP) Pulse Ox O2 Delivery O2 Flow Rate FiO2 07/10/25 14:25 99.0 78 16 139/87 97 Room Air 0 07/10/25 21:47 21 Appearance: Well dev, well nourished Eyes: Clear, PERRL, EOM Normal Ear/Nose/Mouth/Throat: Landmarks WNL, Hearing WNL, Oropharynx WNL Neck: Symmetric, trach midline Cardiovascular: PMI WNL, Regular Rate, Regular Rhythm, Normal S1, S2, Murmur Respiratory: No Retractions, No rubs/wheezing G.I.: Normal bowel sounds, No rebound tenderness, Abnormal (MILD LOWER ABD LEFT SIDED DISCOMFORT) Lymphatic: No lymphadenopathy neck, No lymphadenopathy axilla, No lymphadenopathy groin Skin: No rash/ulcers Neurology: Nerves I-XII intact, Sensation WNL Psychology: Insight WNL, Orientation WNL, Memory WNL, Affect WNL Diagnostics Laboratory Tests Test 07/10/25 16:03 Range/Units White Blood Count 8.4 4.8-10.8 K/uL Red Blood Count 4.60 4.50-6.20 MIL/uL Hemoglobin 13.4 14.0-18.0 g/dL Hematocrit 41.6 42-54 % Mean Corpuscular Volume 90.4 79-99 fL Mean Corpuscular Hemoglobin 29.1 27.0-33.0 pg Mean Corpuscular Hemoglobin Concent 32.2 32.0-36.0 g/dL Red Cell Distribution Width 13.0 11.0-15.5 % Platelet Count 210 130-400 K/uL Mean Platelet Volume 10.4 7.5-10.5 fL Immature Granulocyte % (Auto) 0.4 0-1 % Neutrophils (%) (Auto) 56.1 40.0-77.0 % Lymphocytes (%) (Auto) 30.0 21.0-51.0 % Monocytes (%) (Auto) 10.6 3.0-13.0 % Eosinophils (%) (Auto) 1.4 0.0-8.0 % Basophils (%) (Auto) 1.5 0.0-5.0 % Neutrophils # (Auto) 4.7 1.8-7.7 K/uL Lymphocytes # (Auto) 2.5 1.0-4.8 K/uL Monocytes # (Auto) 0.9 0.1-1.0 K/uL Eosinophils # (Auto) 0.12 0.00-0.70 K/uL Basophils # (Auto) 0.13 0.00-0.20 K/uL Absolute Immature Granulocyte (auto 0.03 0-1 K/uL Nucleated Red Blood Cells 0.0 0.0-0.19 % Sodium Level 142 136-145 mmol/L Potassium Level 4.2 3.5-5.1 mmol/L Chloride Level 106 101-111 mmol/L Carbon Dioxide Level 30 21-32 mmol/L Blood Urea Nitrogen 17 7-18 mg/dL Creatinine 1.1 0.5-1.3 mg/dL Glomerular Filtration Rate Calc 76 >90 mL/min Random Glucose 96 70-105 mg/dL Total Calcium 8.5 8.5-10.1 mg/dL Assessment/Plan Assessment/Plan ASSESSMENT: THIS IS A 64 YR OLD MAN WITH HISTORY OF GERD WITH HISTORY OF GASTRITIS HYPERLIPIDEMIA DIVERTICULOSIS CHRONIC CONSTIPATION HEMORRHOIDS ALIX DJD GENERALIZED CHRONIC LLQ PAIN - EXTENSIVE GI WORK UP IN PAST AND FOLLOWS WITH GI COLONOSCOPY- 05/2023 POLYPS DIVERTICULOSIS AND INTERNAL HEMORRHOIDS- DUE 2025 HE PRESENTED WITH ACUTE BRIGHT RED BLOOD PER RECTUM PLAN: HYDRATE SERIAL MONITORING OF H/H H2B IV CLEAR LIQUID DIET ANALGESICS PRN IF H/H STABLE ADVANCE DIET TOLERATED AND CONT OUTPATIENT GI WORK UP NEEDED NORA BELL MD Jul 10, 2025 22:15
[2025-07-10] MEDS ORDERED: ALBUTEROL 0.083% 2.5 MG/3 ML INH IH PRN (22:30)
[2025-07-10] MEDS ORDERED: GLUCAGON 1MG KIT 1 MG ML IM PRN (22:30)
[2025-07-10] MEDS ORDERED: PoTASSium chl 10% ELIXIR 20MEQ 20 MEQ/15 ML UDCUP PO PRN (22:30)
[2025-07-10] MEDS ORDERED: PoTASSium chloRIDE 20MEQ ER 20 MEQ ERTAB PO PRN (22:30)
[2025-07-10] MEDS ORDERED: DEXTROSE 50%-WATER 50 ML DISP.SYRIN IV PRN (22:30)
--- NOTE | 2025-07-10 22:50 | NUR ---
REPORT GIVEN TO NURSE MARIE.
[2025-07-10] MEDS: 0.9%NACL 1000ML 1,000 ML IV SCH (22:53)
[2025-07-10 23:00] VITALS: BP 131/76; PULSE 60; RESP 20; TEMP 97.6
[2025-07-10 23:48] VITALS: PULSE 54; RESP 18; O2SAT 99
[2025-07-11 04:00] VITALS: BP 108/68; PULSE 51; RESP 20; TEMP 97.6
[2025-07-11 07:47] VITALS: PULSE 57; RESP 18; O2SAT 100
[2025-07-11 08:00] VITALS: BP 123/85; PULSE 55; RESP 20; TEMP 98; O2SAT 99
[2025-07-11 12:00] VITALS: BP 134/80; PULSE 54; RESP 20; TEMP 97.9
--- NOTE | 2025-07-11 13:12 | DS ---
DISCHARGE SUMMARY Date of Visit: Jul 11, 2025 Time of Visit: 13:12 ADMISSION DATE: Jul 10, 2025 at 17:51 DISCHARGE DATE: Jul 11, 2025 ATTENDED PHYSICIAN: Nora Addison MD DISCHARGE DIAGNOSIS: ACUTE LOWER GI BLEED SUSPECT DUE TO HEMORRHOIDS CONSTIPATION WITH LLQ ABD DISCOMFORT GERD WITH HISTORY OF GASTRITIS HYPERLIPIDEMIA DIVERTICULOSIS CHRONIC CONSTIPATION HEMORRHOIDS ALIX DJD GENERALIZED S/P CHOLECYSTECTOMY CHRONIC LLQ PAIN - EXTENSIVE GI WORK UP IN PAST AND FOLLOWS WITH GI COLONOSCOPY- 05/2023 POLYPS DIVERTICULOSIS AND INTERNAL HEMORRHOIDS- DUE 2025 PRESS HELPER(S): NONE PROCEDURES: NONE RADIOLOGY: ABD PEL WO - CT ABDOMEN/PELVIS W/O CONTRAST FINDINGS: LUNG BASES: The lung bases appear clear. No pleural effusions are seen. LIVER: Unremarkable. GALLBLADDER AND BILE DUCTS: Cholecystectomy. PANCREAS: Unremarkable SPLEEN: Unremarkable. ADRENAL GLANDS: Unremarkable. KIDNEYS, URETERS, AND BLADDER: Right renal cyst. STOMACH AND BOWEL: No bowel obstruction. Colonic diverticulosis. APPENDIX: No evidence of acute appendicitis on CT examination. PERITONEUM: No free fluid. No free air. LYMPH NODES: No lymphadenopathy is evident. REPRODUCTIVE: Unremarkable as visualized. VASCULATURE: No evidence of abdominal aortic aneurysm. BONES: Mild degenerative changes of the spine. IMPRESSION: 1. No acute intraabdominal or pelvic pathology. 2. Right renal cyst. 3. Colonic diverticulosis. 4. Status post cholecystectomy. 5. Mild degenerative changes of the spine. HOSPITAL COURSE: THIS IS A 64 YR OLD MAN WITH THE ABOVE PMH WHO PRESENTED WITH ACUTE LOWER GI BLEED SUSPECT DUE TO HEMORRHOIDS AND CONSTIPATION WITH LLQ ABD DISCOMFORT. HE HAD BEEN HAVING SOME CONSTIPATION AND INTERMITTENT DIARRHEA THAT WAS FOLLOWED BY 2-3 EPISODES OF BRIGHT RED BLOOD PER RECTUM AND INTERMITTENT LLQ DISCOMFORT. A FOLLOW UP CT OF THE ABD / PELVIS DID NOT SHOW ANY OTHER ACUTE ETIOLOGIES. HE WAS OBSERVED AND DID NOT HAVE ANY ACTIVE BLEEDING ON PRESENTATION AND DID NOT HAVE ANY RECURRENT BLOODY STOOLS OVERNIGHT. HIS HB WAS 13 FROM A BASELINE OF 14 AN OUTPATIENT. HIS PREVIOUS COLONOSCOPY WAS DONE 05/2023 AND FOUND TO HAVE POLYPS, DIVERTICULOSIS AND INTERNAL HEMORRHOIDS. HIS FOLLOW UP COLONOSCOPY WAS RECOMMEND TO BE DUE 2025. HE WAS MONITORED WITH SERIAL H/H AND HIS HB DID NOT DROP ANY FURTHER AND AGAIN DID NOT HAVE ANY RECURRENT BLOODY STOOLS. HE DID APPEAR TO BE CONSTIPATED AND RECOMMENDED HE USE STOOL SOFTENERS OR GENTLE LAXATIVES OF CHOICE TO REGULATE HIS BOWELS WITHOUT CAUSING A FLARE IN HIS HEMORRHOIDS. SINCE HE WAS STABLE W/O RECURRENCE IT WAS RECOMMENDED HE BE RELEASED AND FOLLOW UP WITH GI AN OUTPATIENT TO SEE IF ANOTHER COLONOSCOPY NEEDED TO BE DONE ANY SOONER THAN PREVIOUSLY RECOMMENDED DEPENDING ON HIS CLINICAL COURSE. HE WAS THEN DISCHARGED IN STABLE CONDITION. DIET: HEART HEALTHY ACTIVITY: RESUME PREVIOUS ACTIVITY CONDITION: STABLE EQUIPMENT: NONE FOLLOW UP APPOINTMENT(S): DR ADDISON IN 2-5 DAYS DISPOSITION: HOME CODE STATUS: FULL MEDICATION RECONCILIATION : Home Medications were reconciled with hospital medications upon discharge and discussed with patient and/or responsible republican. ADD COLACE 100 MG PO BID ADD ANUSOL SUPP BID X 3 DAYS ^ Home Meds Active Scripts Hydrocortisone Acetate (Anusol-Hc) 25 Mg Supp.rect, 1 SUPP [place] BID for 3 Days, #6 SUPP 1 Refill Prov:NORA ADDISON MD 07/11/25 Docusate Sodium (Colace) 100 Mg Capsule, 1 CAP PO BID for 30 Days, #60 CAP 0 Refills Prov:NORA ADDISON MD 07/11/25 Pantoprazole Sodium (Pantoprazole Sodium) 40 Mg GranpktRustydr, 40 MG PO DAILY, #30 10 Prov:NORA ADDISON MD 09/07/23 Discontinued Scripts Trazodone HCl (Trazodone HCl) 150 Mg Tablet, 150 MG PO HS, #90 TAB 1 Refill Prov:NORA ADDISON MD 09/07/23 Trazodone HCl (Trazodone HCl) 100 Mg Tablet, 100 MG PO HS, #90 TAB 1 Refill Prov:NORA ADDISON MD 05/17/23 NORA ADDISON MD Jul 11, 2025 13:12
[2025-07-11 16:00] VITALS: BP 118/69; PULSE 58; RESP 20; TEMP 98
== END 2025-07-11 15:45 | disposition home or self-care (01) ==
LOC: EDH 14:08 → INTOOBSV 17:51 → EDHIP 17:51 → 3AH 23:02
PROVIDERS: ADMIT Internal Medicine; ATTEND Internal Medicine
DX: K92.2 Gastrointestinal hemorrhage, unspecified (principal); K40.90 Unilateral inguinal hernia, without obstruction or gangrene, not specified as recurrent; K21.9 Gastro-esophageal reflux disease without esophagitis; K59.09 Other constipation; E78.5 Hyperlipidemia, unspecified; M19.90 Unspecified osteoarthritis, unspecified site; N28.1 Cyst of kidney, acquired; Z90.49 Acquired absence of other specified parts of digestive tract; Z79.899 Other long term (current) drug therapy; Z98.890 Other specified postprocedural states
CPT/HCPCS: 96374; 96361 ×2; 96375; 99285; 80048; 85025; 36415 ×2; 74176; 94664; 96376; 85014 ×2; 85018 ×2; 82948 ×3; J1308 ×2; J2270 ×3; G0378 ×3